=== PATIENT | male | born 1945 | race Caucasian/White ===

== ENCOUNTER 2021-10-30 12:36 | Emergency (ER) | payer MEDICARE, BC ==
--- NOTE | 2021-10-30 12:47 | ERPHSYRPT ---
- History of Present Illness Time Seen by Provider: 10/30/21 12:46 Source: patient Exam Limitations: no limitations Physician History: This is a 75-year-old white male who has a history of prostate problems and began having urinary retention yesterday. He has not urinated much but feels the need to do so. He also feels very bloated and aches in the suprapubic region. He does not have a local urologist Timing/Duration: yesterday, worse Activites at Onset: none Quality: pressure Onset Location: suprapubic Pain Radiation: suprapubic Severity of Pain-Max: mild Severity of Pain-Current: mild Modifying Factors: Improves With: other (Urinary retention) Associated Symptoms: abdominal pain (Suprapubic pressure/pain), other (Urinary retention) Prior abdominal problems: none Sexual intercourse history: non-contributory Travel Risk - International Travel Have you traveled outside of the country in past 3 weeks: No - Coronavirus Screening Are you exhibiting any of the following symptoms?: No Close contact with a COVID-19 positive Pt in past 14-21 Days: No - Past Medical History Pertinent Past Medical History: Yes - Past Surgical History Past Surgical History: Yes - Review of Systems Constitutional: No Symptoms Eyes: No Symptoms Ears, Nose, & Throat: No Symptoms Respiratory: No Symptoms Cardiac: No Symptoms Abdominal/Gastrointestinal: Abdominal Pain (Suprapubic pressure) Genitourinary Symptoms: Urinary Retention Musculoskeletal: No Symptoms Skin: No Symptoms Neurological: No Symptoms Psychological: No Symptoms Endocrine: No Symptoms Hematologic/Lymphatic: No Symptoms Immunological/Allergic: No Symptoms All Other Systems: Reviewed and Negative - Nursing Vital Signs Nursing Vital Signs: Initial Vital Signs Temperature 97.5 F 10/30/21 12:54 Pulse Rate 68 10/30/21 12:54 Respiratory Rate 17 10/30/21 12:54 Blood Pressure 162/86 10/30/21 12:54 O2 Sat by Pulse Oximetry 99 10/30/21 12:54 Pain Scale Pain Intensity 5 - Physical Exam General Appearance: no apparent distress, alert, anxiety Eye Exam: PERRL/EOMI, eyes nml inspection Ears, Nose, Throat Exam: normal ENT inspection, moist mucous membranes Neck Exam: normal inspection, non-tender, supple, full range of motion Respiratory Exam: normal breath sounds, lungs clear, airway intact, No chest tenderness, No respiratory distress Cardiovascular Exam: regular rate/rhythm, normal heart sounds, normal peripheral pulses Gastrointestinal/Abdomen Exam: soft, normal bowel sounds, tenderness Rectal Exam: not done Back Exam: normal inspection, normal range of motion, No CVA tenderness, No vertebral tenderness Extremity Exam: normal inspection, normal range of motion, pelvis stable Neurologic Exam: alert, oriented x 3, cooperative, 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025) POC Urine Protein Conf NEGATIVE (Negative) Urine Ketones NEGATIVE (NEGATIVE) Urine Nitrite NEGATIVE (NEGATIVE) Urine Bilirubin NEGATIVE (NEGATIVE) Urine Urobilinogen 0.2 (0-1) mg/dL Urine Leukocytes NEGATIVE (NEGATIVE) Urine WBC (Auto) 0-2 (0-5) /HPF Urine RBC (Auto) 0-2 (0-2) /HPF U Hyaline Cast (Auto) 0-2 (0-2) /LPF Urine RBC TRACE-INTACT (0-5) Ryder/ul Urine Mucus (Auto) SLIGHT (NEGATIVE) /HPF Ur Culture Indicated? NO Urine Glucose NEGATIVE (NEGATIVE) mg/dL - Progress Progress: improved Progress Note: 10/30/21 14:20 Fall awaiting the placement of the take-home Mello catheter, 850 mL of urine immediately was drained. Patient symptoms completely resolved. Patient will go home with the Mello catheter in place and a leg bag. He will follow-up with the urologist. We will provide him with an urologic group name and phone number for him to make a phone call. Counseled pt/family regarding: lab results, diagnosis, need for follow-up - Departure Departure Disposition: Home Clinical Impression: Urinary retention Condition: Stable Critical Care Time: No Additional Instructions: Care for your Mello catheter and drain per nursing instructions. Follow up with urologist for further management. Group/physician name and phone number provided.
[2021-10-30 12:56] VITALS: O2SAT 99
[2021-10-30 13:58] LABS: Hyaline Casts 0-2 /LPF (0-2); Mucus SLIGHT /HPF (NEGATIVE); RBC 0-2 /HPF (0-2); WBC 0-2 /HPF (0-5)
[2021-10-30 14:01] LABS: Appearance CLEAR (CLEAR); Bilirubin NEGATIVE (NEGATIVE); Glucose NEGATIVE (NEGATIVE); Ketones NEGATIVE (NEGATIVE); Nitrite NEGATIVE (NEGATIVE); Ph 6.5 (5-6); Protein,Urine Dip NEGATIVE (Negative); RBC TRACE-INTACT Ery/ul (0-5); Specific Gravity 1.025 (1.005-1.025); Urobilinogen 0.2 mg/dL (0-1)
[2021-10-30 14:02] LABS: Urine Cultured Indicated? NO
[2021-10-30 14:03] LABS: Dipstick done @ ? MAIN LAB
[2021-10-30 14:05] VITALS: BP 128/75; PULSE 87
== END 2021-10-30 14:33 | disposition home or self-care (01) ==
LOC: ED 12:36
DX: R33.9 Retention of urine, unspecified (principal); R10.2 Pelvic and perineal pain
CPT/HCPCS: 51702; 81015; 99284